=== PATIENT | male | born 1945 | race Caucasian/White ===

== ENCOUNTER → 2020-09-12 | Outpatient (REF) | payer MEDICARE ==
[2020-09-12 12:54] LABS: BASO % 0.6 % (0.0-1.0); EOS # 0.2 10^3/uL (0.0-0.5); EOS % 2.3 % (0.0-3.0); HEMATOCRIT 47.5 % (42.0-52.0); HEMOGLOBIN 15.3 g/dl (13.5-17.5); LYMPH # 1.9 10^3/uL (1.5-5.0); LYMPH % 28.1 % (24.0-44.0); MEAN CORPUSCULAR HGB CONC 32.2 g/dl (32.0-36.5); MEAN CORPUSCULAR VOLUME 93.1 fl (80.0-96.0); MONO # 0.7 10^3/uL (0.0-0.8); NEUTROPHILS # 3.9 10^3/uL (1.5-8.5); NEUTROPHILS % 58.7 % (36.0-66.0); PLATELET COUNT, AUTOMATED 235 10^3/uL (150-450); WHITE BLOOD COUNT 6.6 10^3/uL (4.0-10.0)
[2020-09-12 13:34] LABS: ALBUMIN 3.5 GM/DL (3.2-5.2); ALT/SGPT 25 U/L (12-78); BILIRUBIN,TOTAL 0.4 MG/DL (0.2-1.0); BLOOD UREA NITROGEN 18 MG/DL (7-18); CALCIUM LEVEL 8.7 MG/DL (8.8-10.2); CARBON DIOXIDE LEVEL 29 MEQ/L (21-32); CHLORIDE LEVEL 107 MEQ/L (98-107); CHOLESTEROL LEVEL 246 MG/DL (<200); GLOMERULAR FILTRATION RATE > 60.0 (>42); GLUCOSE, FASTING 87 MG/DL (70-100); HDL CHOLESTEROL 41 MG/DL (>40); LDL CHOLESTEROL 184 MG/DL (<100); NON-HDL-C 205 MG/DL; POTASSIUM SERUM 4.3 MEQ/L (3.5-5.1); SODIUM LEVEL 142 MEQ/L (136-145); TOTAL PROTEIN 6.8 GM/DL (6.4-8.2); TRIGLYCERIDES LEVEL 105 MG/DL (<150)
[2020-09-12 13:35] LABS: TOTAL 25(OH) VITAMIN D 20.3 NG/ML (30.0-100.0)
[2020-09-14 00:07] LABS: PSA % FREE 17.7 % (.); PSA FREE 1.77 ng/mL
== END ==
LOC: M LAB REF 11:31
PROVIDERS: ATTEND Pediatrics
DX: N40.1 Benign prostatic hyperplasia with lower urinary tract symptoms (principal); I63.9 Cerebral infarction, unspecified; I10 Essential (primary) hypertension; E55.9 Vitamin D deficiency, unspecified

== ENCOUNTER → 2020-11-10 | Outpatient (CLI) | payer MEDICARE ==
--- NOTE | 2020-11-10 15:52 | REP ---
INDICATION: DIZZINESS/GIDDINESS. History of stroke. COMPARISON: No available prior imaging.. TECHNIQUE: 3-D [id number] MR angiography of the brain is acquired in the usual fashion and maximal intensity projection images were generated in rotational format about the vertical and horizontal axes. In addition, source axial T1-weighted images are viewed in cine mode. FINDINGS: Image quality is inhibited some degree by instrument limitations. The left distal vertebral artery is a little smaller than the right but vertebral arteries are patent distally. Basilar artery is widely patent. Posterior cerebral and superior cerebellar vessels are intact and unremarkable. The distal internal carotid arteries are unremarkable. The anterior cerebral arteries are normal and symmetric. There is generally poor filling of the left middle cerebral artery compared to the right beyond the M1 segment. This is of uncertain significance. Right middle cerebral artery branches are unremarkable. No evidence of le aneurysm seen. No AVM seen. IMPRESSION: Image quality is somewhat inhibited. Poor visualization of flow signal in the left middle cerebral artery beyond the M1 segment. Otherwise negative.. <Electronically signed by Bebo Christianson > 11/10/20 [id number]
== END ==
LOC: M PLARAD 13:34
PROVIDERS: ATTEND Pediatrics
DX: I63.9 Cerebral infarction, unspecified (principal)

== ENCOUNTER → 2020-12-05 | Outpatient (CLI) | payer MEDICARE ==
--- NOTE | 2020-12-05 14:51 | REP ---
INDICATION: Assess stenosis TECHNIQUE: Carotid ultrasonography was performed bilaterally FINDINGS: Right: CCA systolic: 106.0 centimeters/second CCA diastolic: 13.7 centimeters/second ICA systolic: 70.2 centimeters/second ICA diastolic: 18.9 centimeters/second ICA CCA ratio: 0.17 Left: CCA systolic: 162 centimeters/second CCA diastolic: 23.2 centimeters/second ICA systolic: 57.6 centimeters/second ICA diastolic: 16.5 centimeters/second ICA CCA ratio: 0.10 Vertebral artery: Right: Antegrade flow left: Antegrade flow Patchy echogenic material is seen along the carotid arterial [place] some of which casts and acoustic shadow consistent with calcific deposition. IMPRESSION: According to the SRU criteria there is less than 50% stenosis of the internal carotid artery bilaterally. This is secondary to both calcified and noncalcified atheromatous plaque formation. <Electronically signed by Roberto Pastrana > 12/05/20 2004
== END ==
LOC: EDUNIT# 09-19 14:30 → M RAD 13:59
PROVIDERS: ATTEND Pediatrics
DX: I63.9 Cerebral infarction, unspecified (principal)

== ENCOUNTER → 2022-01-22 | Outpatient (CLI) | payer MEDICARE ==
[~2022-01-22] MED LIST: ASPI325T57 PO; ATOR40TA75 PO; OMEP-173 PO
== END ==
LOC: M WHC 13:19
PROVIDERS: ATTEND Pediatrics
DX: N63.11 Unspecified lump in the right breast, upper outer quadrant (principal)
CPT/HCPCS: 76642; 77066; G0279

== ENCOUNTER → 2022-01-24 | Outpatient (CLI) | payer MEDICARE ==
[2022-01-24 16:08] VITALS: BP 142/80
== END ==
LOC: M WHCPRO 14:13
PROVIDERS: ATTEND Surgery
DX: C50.421 Malignant neoplasm of upper-outer quadrant of right male breast (principal)

== ENCOUNTER → 2022-01-31 | Outpatient (CLI) | payer MEDICARE ==
[~2022-01-31] MED LIST changes: +LOSA100T5 PO
[2022-01-31 16:15] LABS: BLOOD UREA NITROGEN 13 MG/DL (7-18); CALCIUM LEVEL 9.3 MG/DL (8.8-10.2); CARBON DIOXIDE LEVEL 31 MEQ/L (21-32); CHLORIDE LEVEL 105 MEQ/L (98-107); CREATININE FOR GFR 0.99 MG/DL (0.70-1.30); GLOMERULAR FILTRATION RATE > 60.0 (>42); GLUCOSE, FASTING 90 MG/DL (70-100); POTASSIUM SERUM 3.8 MEQ/L (3.5-5.1); SODIUM LEVEL 139 MEQ/L (136-145)
== END ==
LOC: M PLALAB 13:16
PROVIDERS: ATTEND Surgery
DX: C50.921 Malignant neoplasm of unspecified site of right male breast (principal)

== ENCOUNTER → 2022-02-01 | Outpatient (CLI) | payer MEDICARE ==
[~2022-02-01] MED LIST changes: -LOSA100T5 PO; +PROHANCE 279.3MG/ML 15ML VIAL As Ordered ONE
== END ==
LOC: M RAD 09:29
PROVIDERS: ATTEND Surgery
DX: C50.921 Malignant neoplasm of unspecified site of right male breast (principal)
CPT/HCPCS: A9576; C8908

== ENCOUNTER → 2022-02-07 | Outpatient (CLI) | payer MEDICARE ==
[~2022-02-07] MED LIST changes: -PROHANCE 279.3MG/ML 15ML VIAL As Ordered ONE
== END ==
LOC: M RAD 13:48
PROVIDERS: ATTEND Surgery
DX: C50.421 Malignant neoplasm of upper-outer quadrant of right male breast (principal); R59.9 Enlarged lymph nodes, unspecified; Z17.0 Estrogen receptor positive status [ER+]

== ENCOUNTER → 2022-02-15 | Outpatient (CLI) | payer MEDICARE ==
[~2022-02-15] MED LIST changes: +LIDOCAINE 1% MDV 20ML VIAL As Ordered ONE; +LOSA100T5 PO
[2022-02-15 14:14] VITALS: BP 132/66
== END ==
LOC: M IRPRO 13:30
PROVIDERS: ATTEND Surgery
DX: R59.9 Enlarged lymph nodes, unspecified (principal)

== ENCOUNTER → 2022-02-19 | Outpatient (CLI) | payer MEDICARE ==
[~2022-02-19] MED LIST changes: +ACET-839 PO; -LIDOCAINE 1% MDV 20ML VIAL As Ordered ONE; +ULTR50TA8 PO
== END ==
LOC: M PLARAD 08:09
PROVIDERS: ATTEND Surgery
DX: C50.421 Malignant neoplasm of upper-outer quadrant of right male breast (principal); R91.8 Other nonspecific abnormal finding of lung field; R59.9 Enlarged lymph nodes, unspecified; Z17.0 Estrogen receptor positive status [ER+]
CPT/HCPCS: 78815; A9552

== ENCOUNTER → 2022-03-02 | Outpatient (CLI) | payer MEDICARE ==
[~2022-03-02] MED LIST changes: -ACET-839 PO; -ULTR50TA8 PO
== END ==
LOC: M RAD 11:55
PROVIDERS: ATTEND Internal Medicine Pulmonary Disease
DX: C50.421 Malignant neoplasm of upper-outer quadrant of right male breast (principal); I72.8 Aneurysm of other specified arteries

== ENCOUNTER → 2022-03-08 | Outpatient (CLI) | payer MEDICARE | LOC: M LABSMTC 10:46 | PROVIDERS: ATTEND Anesthesiology | DX: Z01.812 Encounter for preprocedural laboratory examination (principal); Z20.822 Contact with and (suspected) exposure to COVID-19 ==

== ENCOUNTER 2022-03-13 06:30 | Observation (INO) | payer MEDICARE ==
[~2022-03-13] VITALS: Ht 176.5 cm; Wt 73.9 kg
[2022-03-13] VITALS (7 sets, daily range): BP systolic 110–158; BP diastolic 64–86
[~2022-03-13 06:30] MED LIST changes: +HEPARIN SOD (PORCINE) 5000UNITS/ML 1ML VIAL/SYRINGE SQ ONE; +ceFAZolin SOD 2 GM in IV 1 EA IV ONE
[2022-03-13] MEDS ORDERED: LR 1,000 ML IV SCH ×3 (07:30→15:30)
[2022-03-13] MEDS ORDERED: BUPIVACAINE HCL 0.25% 30ML VIAL As Ordered ONE (09:29)
[2022-03-13] MEDS ORDERED: BUPIVACAINE LIPOSOME/PF 1.3% 20ML VIAL (13.3MG/ML)(EXPAREL) As Ordered ONE (09:30)
[2022-03-13] MEDS ORDERED: dexameTHASONE 4 MG/ML 1ML VIAL (J1100 PER 1MG) As Ordered ONE (10:38)
[2022-03-13] MEDS ORDERED: MIDAZOLAM INJ 2MG/2ML VIAL (J2250 PER 1MG) As Ordered ONE (10:38)
[2022-03-13] MEDS ORDERED: fentaNYL 250 MCG/5 ML INJECTION As Ordered ONE (10:38)
[2022-03-13] MEDS ORDERED: PHENYLephrine 500MCG 5ML (100MCG/ML) SYRINGE As Ordered ONE (10:38)
[2022-03-13] MEDS ORDERED: ONDANSETRON 4MG 2ML VIAL As Ordered ONE (10:38)
[2022-03-13] MEDS ORDERED: propofoL 200 MG/20 ML VIAL As Ordered ONE ×2 (10:38→11:14)
[2022-03-13] MEDS ORDERED: LIDOCAINE 2% 100MG/5ML SDV (FOR ANES.) As Ordered ONE (10:38)
[2022-03-13] MEDS ORDERED: ROCURONIUM BROMIDE 50 MG/5 ML VIAL As Ordered ONE (10:38)
[2022-03-13] MEDS ORDERED: METOCLOPRAMIDE INJ 10MG/2ML VIAL (J2765 PER 1) As Ordered ONE (10:38)
[2022-03-13] MEDS ORDERED: ACETAMINOPHEN 1000MG 100ML IV BAG As Ordered ONE (10:38)
[2022-03-13] MEDS ORDERED: ePHEDrine SULFATE 25 MG/5 ML(5MG/ML) SYRINGE As Ordered ONE ×2 (10:38→12:57)
[2022-03-13] MEDS ORDERED: SUGAMMADEX SODIUM 500 MG/5 ML VIAL (BRIDION) As Ordered ONE (10:38)
[2022-03-13] MEDS ORDERED: DESFLURANE 240 ML INHALANT As Ordered ONE (11:08)
[2022-03-13] MEDS ORDERED: HYDROmorphone HCL 2MG/ML 1ML VIAL As Ordered ONE (11:15)
[2022-03-13] MEDS ORDERED: fentaNYL 100 MCG/2 ML INJECTION As Ordered ONE (13:56)
[2022-03-13] MEDS ORDERED: fentaNYL 100 MCG/2 ML INJECTION IV PRN (14:30)
[2022-03-13] MEDS ORDERED: oxyCODONE 5MG TAB PO PRN (14:30)
[2022-03-13] MEDS ORDERED: ONDANSETRON 4MG 2ML VIAL IV PRN ×2 (14:30→15:30)
[2022-03-13] MEDS ORDERED: ceFAZolin 2 GM/D5W 50 ML IV BAG (J0690 PER 500MG) As Ordered ONE (14:47)
[2022-03-13] MEDS ORDERED: MORPHINE 2 MG/ML 1ML VIAL IV PRN (15:30)
[2022-03-13] MEDS ORDERED: traMADol 50 MG TAB PO PRN (15:30)
[2022-03-13] MEDS ORDERED: ACETAMINOPHEN TAB 650MG DOSE (2X325MG) PO PRN (15:30)
[2022-03-13] MEDS: ceFAZolin SOD 2 GM in IV 1 EA IV SCH (18:12)
[2022-03-13 18:14] LABS: HEMATOCRIT 43.1 % (42.0-52.0); HEMOGLOBIN 14.1 g/dl (13.5-17.5); MEAN CORPUSCULAR HEMOGLOBIN 30.6 pg (27.0-33.0); MEAN CORPUSCULAR HGB CONC 32.7 g/dl (32.0-36.5); MEAN CORPUSCULAR VOLUME 93.5 fl (80.0-96.0); PLATELET COUNT, AUTOMATED 241 10^3/uL (150-450); RED BLOOD COUNT 4.61 10^6/uL (4.30-6.10); WHITE BLOOD COUNT 15.6 10^3/uL (4.0-10.0)
[2022-03-13 18:26] LABS: INR 0.97; PROTHROMBIN TIME 13.3 SECONDS (12.7-14.5)
[2022-03-13 18:27] LABS: PARTIAL THROMBOPLASTIN TIME 30.3 SECONDS (25.9-37.0)
[2022-03-13 19:07] LABS: ALBUMIN 3.5 GM/DL (3.2-5.2); ALT/SGPT 38 U/L (12-78); BILIRUBIN,TOTAL 0.4 MG/DL (0.2-1.0); BLOOD UREA NITROGEN 14 MG/DL (7-18); CALCIUM LEVEL 9.3 MG/DL (8.8-10.2); CARBON DIOXIDE LEVEL 28 MEQ/L (21-32); CHLORIDE LEVEL 104 MEQ/L (98-107); CREATININE FOR GFR 1.17 MG/DL (0.70-1.30); GLOMERULAR FILTRATION RATE > 60.0 (>42); GLUCOSE, FASTING 161 MG/DL (70-100); POTASSIUM SERUM 3.7 MEQ/L (3.5-5.1); SODIUM LEVEL 138 MEQ/L (136-145)
[2022-03-13] MEDS: HEPARIN SOD (PORCINE) 5000UNITS/ML 1ML VIAL/SYRINGE SQ SCH (21:46)
[2022-03-13] MEDS: OMEPRAZOLE 20MG CAP PO SCH (21:46)
[2022-03-14] MEDS ORDERED: CEPACOL LOZENGE PO PRN (00:20)
[2022-03-14 02:00] VITALS: BP 112/60
[2022-03-14 02:09] VITALS: O2SAT 99
[2022-03-14] MEDS: ceFAZolin SOD 2 GM in IV 1 EA IV SCH ×2 (02:19→10:32)
[2022-03-14] MEDS: HEPARIN SOD (PORCINE) 5000UNITS/ML 1ML VIAL/SYRINGE SQ SCH (05:06)
[2022-03-14 06:00] VITALS: BP 112/61
[2022-03-14 08:14] VITALS: BP 124/70
[2022-03-14] MEDS: OMEPRAZOLE 20MG CAP PO SCH (08:14)
[2022-03-14 08:40] LABS: HEMATOCRIT 34.9 % (42.0-52.0); MEAN CORPUSCULAR HEMOGLOBIN 30.9 pg (27.0-33.0); MEAN CORPUSCULAR HGB CONC 32.7 g/dl (32.0-36.5); MEAN CORPUSCULAR VOLUME 94.6 fl (80.0-96.0); PLATELET COUNT, AUTOMATED 197 10^3/uL (150-450); RED BLOOD COUNT 3.69 10^6/uL (4.30-6.10); WHITE BLOOD COUNT 9.3 10^3/uL (4.0-10.0)
[2022-03-14 08:43] LABS: HEMOGLOBIN 11.4 g/dl (13.5-17.5)
[2022-03-14] MEDS ORDERED: LOSARTAN 50MG TABLET PO SCH (09:00)
[2022-03-14] MEDS ORDERED: ATORVASTATIN 20 MG TAB PO SCH (09:00)
[2022-03-14 09:30] VITALS: O2SAT 97
[2022-03-14 09:31] LABS: ALBUMIN 2.8 GM/DL (3.2-5.2); ALT/SGPT 23 U/L (12-78); BILIRUBIN,TOTAL 0.4 MG/DL (0.2-1.0); BLOOD UREA NITROGEN 11 MG/DL (7-18); CALCIUM LEVEL 8.6 MG/DL (8.8-10.2); CARBON DIOXIDE LEVEL 29 MEQ/L (21-32); CHLORIDE LEVEL 107 MEQ/L (98-107); CREATININE FOR GFR 0.92 MG/DL (0.70-1.30); GLOMERULAR FILTRATION RATE > 60.0 (>42); GLUCOSE, FASTING 110 MG/DL (70-100); SODIUM LEVEL 142 MEQ/L (136-145); TOTAL PROTEIN 5.3 GM/DL (6.4-8.2)
[2022-03-14 10:00] VITALS: BP 117/52
[2022-03-14] MEDS ORDERED: ACET-839 PO (12:07)
[2022-03-14] MEDS ORDERED: ULTR50TA8 PO (12:07)
[2022-04-03] MEDS ORDERED: ONDA-84 PO (16:28)
[2022-04-03] MEDS ORDERED: PROC10TA5 PO (16:28)
[2022-04-03] MEDS ORDERED: DEXA4TA PO (16:37)
== END 2022-03-14 14:48 | disposition home or self-care (01) ==
LOC: M SDC 06:30 → M MSPAV 06:31
PROVIDERS: ADMIT Surgery; ATTEND Surgery
DX: D05.11 Intraductal carcinoma in situ of right breast (principal); E78.5 Hyperlipidemia, unspecified; K31.9 Disease of stomach and duodenum, unspecified; I34.0 Nonrheumatic mitral (valve) insufficiency; D12.6 Benign neoplasm of colon, unspecified; I10 Essential (primary) hypertension; R91.8 Other nonspecific abnormal finding of lung field; Z86.73 Personal history of transient ischemic attack (TIA), and cerebral infarction without residual deficits; Z90.79 Acquired absence of other genital organ(s); Z79.899 Other long term (current) drug therapy; Z79.82 Long term (current) use of aspirin
CPT/HCPCS: 19303; 36415; 38525; 64450; 78195; 80053; 85027; 85610; 85730; 86850; 86900; 86901; 88307; 88342; 96372; A9520; C9290; G0378; J0131; J0690; J1100; J1170; J1644; J2250; J2370; J2405; J2765; J3010

== ENCOUNTER → 2022-04-08 | Outpatient (CLI) | payer MEDICARE ==
[~2022-04-08] MED LIST changes: +ACET-839 PO; +DEXA4TA PO; -HEPARIN SOD (PORCINE) 5000UNITS/ML 1ML VIAL/SYRINGE SQ ONE; +ONDA-84 PO; +PROC10TA5 PO; +ULTR50TA8 PO; -ceFAZolin SOD 2 GM in IV 1 EA IV ONE
== END ==
LOC: M LABSMTC 10:40
PROVIDERS: ATTEND Anesthesiology
DX: Z01.812 Encounter for preprocedural laboratory examination (principal); Z11.52 Encounter for screening for COVID-19

== ENCOUNTER → 2022-04-11 | Outpatient (CLI) | payer MEDICARE ==
[~2022-04-11] MED LIST changes: +LIDOCAINE 1% MDV 20ML VIAL As Ordered ONE; +MIDAZOLAM INJ 2MG/2ML VIAL (J2250 PER 1MG) As Ordered ONE; +NS 1,000 ML IV SCH; +ceFAZolin 2 GM/D5W 50 ML IV BAG (J0690 PER 500MG) As Ordered ONE; +ceFAZolin SOD 2 GM in IV 1 EA IV ONE; +diphenhydrAMINE 50MG/ML VIAL (J1200) As Ordered ONE; +fentaNYL 100 MCG/2 ML INJECTION As Ordered ONE
[2022-04-11 14:50] VITALS: BP 160/72
== END ==
LOC: M IRPRO 10:45
PROVIDERS: ATTEND Specialist
DX: C50.929 Malignant neoplasm of unspecified site of unspecified male breast (principal)
CPT/HCPCS: 36561; 99152; 99153; C1769; C1788; C1894; J0690; J1200; J1642; J1644; J2250; J3010

== ENCOUNTER 2022-04-26 15:18 | Inpatient (IN) | payer MEDICARE ==
[~2022-04-26] VITALS: Ht 175.3 cm; Wt 75.5 kg
[~2022-04-26 15:18] MED LIST changes: -LIDOCAINE 1% MDV 20ML VIAL As Ordered ONE; -MIDAZOLAM INJ 2MG/2ML VIAL (J2250 PER 1MG) As Ordered ONE; -NS 1,000 ML IV SCH; -ceFAZolin 2 GM/D5W 50 ML IV BAG (J0690 PER 500MG) As Ordered ONE; -ceFAZolin SOD 2 GM in IV 1 EA IV ONE; -diphenhydrAMINE 50MG/ML VIAL (J1200) As Ordered ONE; -fentaNYL 100 MCG/2 ML INJECTION As Ordered ONE
[2022-04-26] MEDS ORDERED: NS 500 ML IV ONE (15:50)
[2022-04-26 16:12] LABS: HEMATOCRIT 31.8 % (42.0-52.0); HEMOGLOBIN 10.9 g/dl (13.5-17.5); MEAN CORPUSCULAR HGB CONC 34.3 g/dl (32.0-36.5); MEAN CORPUSCULAR VOLUME 90.3 fl (80.0-96.0); PLATELET COUNT, AUTOMATED 326 10^3/uL (150-450); RED BLOOD COUNT 3.52 10^6/uL (4.30-6.10); WHITE BLOOD COUNT 1.7 10^3/uL (4.0-10.0)
[2022-04-26 16:30] LABS: ATYPICAL LYMPH 7 % (0-5); BASOPHILS 1 % (0-1); EOSINOPHILS 1 % (0-3); LYMPHOCYTES 40 % (16-44); MONOCYTES 49 % (0-5)
[2022-04-26 16:33] LABS: PLATELET ESTIMATE NORMAL (NORMAL)
[2022-04-26 17:04] LABS: ALBUMIN 2.5 GM/DL (3.2-5.2); ALT/SGPT 26 U/L (12-78); BILIRUBIN,DIRECT 0.2 MG/DL (0.0-0.2); BILIRUBIN,TOTAL 0.6 MG/DL (0.2-1.0); BLOOD UREA NITROGEN 21 MG/DL (7-18); CALCIUM LEVEL 8.3 MG/DL (8.8-10.2); CARBON DIOXIDE LEVEL 30 MEQ/L (21-32); CHLORIDE LEVEL 96 MEQ/L (98-107); CREATININE FOR GFR 0.88 MG/DL (0.70-1.30); GLOMERULAR FILTRATION RATE > 60.0 (>42); GLUCOSE, FASTING 104 MG/DL (70-100); LIPASE 138 U/L (73-393); MAGNESIUM LEVEL 2.2 MG/DL (1.8-2.4); POTASSIUM SERUM 2.8 MEQ/L (3.5-5.1); SODIUM LEVEL 133 MEQ/L (136-145); TOTAL PROTEIN 5.5 GM/DL (6.4-8.2)
[2022-04-26] MEDS ORDERED: KCL 10MEQ/100ML SWI (KRUN) 10 MEQ in IV 1 EA IV ONE (17:05)
[2022-04-26 18:06] LABS: MONO REFLEX EBV COMP NEGATIVE (NEGATIVE)
[2022-04-26] MEDS ORDERED: cefTRIAXone SOD 1 GM in D5W MINI-BAG PLUS 50 ML IV ONE (19:00)
[2022-04-26] MEDS ORDERED: POTASSIUM CHLORIDE 10MEQ SR TABLET PO ONE (19:30)
[2022-04-26] MEDS ORDERED: ACETAMINOPHEN 325 MG TAB PO ONE (19:55)
[2022-04-26] MEDS ORDERED: VITA200031 PO (20:53)
[2022-04-26] MEDS ORDERED: TRAM50TA2 PO (20:53)
[2022-04-26] MEDS ORDERED: ASPI325T56 PO (20:53)
[2022-04-26] MEDS ORDERED: ATOR40TA75 PO (20:53)
[2022-04-26] MEDS ORDERED: HOME MED LIST COMPLETE! XX SCH (20:55)
[2022-04-26] MEDS ORDERED: NS 1,000 ML IV SCH (22:00)
[2022-04-26 22:44] VITALS: BP 103/56
[2022-04-26] MEDS ORDERED: ONDANSETRON 4MG TAB PO PRN (22:55)
[2022-04-26] MEDS ORDERED: traMADol 50 MG TAB PO PRN (22:55)
[2022-04-26] MEDS ORDERED: PROCHLORPERAZINE 5MG TAB PO PRN (22:55)
[2022-04-26] MEDS ORDERED: POTASSIUM CHLORIDE 10% LIQ 20 MEQ/15 ML UDC PO ONE (23:00)
[2022-04-27] MEDS: NS 1,000 ML IV SCH ×2 (00:27→12:44)
[2022-04-27 01:00] VITALS: O2SAT 92
[2022-04-27 05:50] VITALS: BP 103/56
[2022-04-27 07:14] LABS: HEMATOCRIT 30.2 % (42.0-52.0); HEMOGLOBIN 10.1 g/dl (13.5-17.5); MEAN CORPUSCULAR HEMOGLOBIN 30.5 pg (27.0-33.0); MEAN CORPUSCULAR HGB CONC 33.4 g/dl (32.0-36.5); MEAN CORPUSCULAR VOLUME 91.2 fl (80.0-96.0); PLATELET COUNT, AUTOMATED 284 10^3/uL (150-450); RED BLOOD COUNT 3.31 10^6/uL (4.30-6.10); WHITE BLOOD COUNT 2.1 10^3/uL (4.0-10.0)
[2022-04-27 08:04] LABS: BLOOD UREA NITROGEN 15 MG/DL (7-18); CALCIUM LEVEL 7.6 MG/DL (8.8-10.2); CARBON DIOXIDE LEVEL 28 MEQ/L (21-32); CHLORIDE LEVEL 101 MEQ/L (98-107); CREATININE FOR GFR 0.83 MG/DL (0.70-1.30); GLOMERULAR FILTRATION RATE > 60.0 (>42); GLUCOSE, FASTING 144 MG/DL (70-100); POTASSIUM SERUM 2.9 MEQ/L (3.5-5.1); SODIUM LEVEL 136 MEQ/L (136-145)
[2022-04-27 08:26] LABS: LYMPHOCYTES 24 % (16-44); METAMYELOCYTES 2 % (0-0); MONOCYTES 42 % (0-5); NEUTROPHILS 14 % (28-66)
[2022-04-27 08:28] LABS: PLATELET ESTIMATE NORMAL (NORMAL)
[2022-04-27 08:29] LABS: INR 1.18; PROTHROMBIN TIME 15.3 SECONDS (12.5-14.5)
[2022-04-27 08:32] LABS: D-DIMER QUANT 387.41 ng/ml (<500)
[2022-04-27 08:49] LABS: C REACTIVE PROTEIN QUANTITATIV 6.54 MG/DL (0.00-0.30)
[2022-04-27] MEDS: ATORVASTATIN 20 MG TAB PO SCH (08:52)
[2022-04-27] MEDS: ASPIRIN 325 MG TAB PO SCH (08:52)
[2022-04-27] MEDS: OMEPRAZOLE 20MG CAP PO SCH (08:52)
[2022-04-27] MEDS ORDERED: HEPARIN SOD (PORCINE) 5000UNITS/ML 1ML VIAL/SYRINGE SC SCH (09:00)
[2022-04-27] MEDS ORDERED: FLUBLOK(EGG FREE)(QUAD)INFLUENZA VACC 0.5ML SYRINGE 18YRS & OLDER IM.IMMUN ONE (09:00)
[2022-04-27] MEDS ORDERED: PREVNAR-20 VACCINE 0.5ML SYRINGE IM.IMMUN ONE (09:00)
[2022-04-27 14:00] VITALS: BP 96/66
[2022-04-27] MEDS ORDERED: CEFEPIME HCL 1 GM in D5W MINI-BAG PLUS 50 ML IV SCH (17:30)
[2022-04-27] MEDS ORDERED: VANCOMYCIN HCL 750 MG, VIAL MATE ADAPTER 1 EACH in NS 250 ML IV SCH (17:40)
[2022-04-27] MEDS ORDERED: REMDESIVIR 200 MG in NS 250 ML IV ONE (18:00)
[2022-04-27] MEDS ORDERED: POTASSIUM CHLORIDE 10MEQ SR TABLET PO ONE ×2 (18:00→20:00)
[2022-04-27] MEDS ORDERED: cefTRIAXone SOD 1 GM in D5W MINI-BAG PLUS 50 ML IV SCH (20:00)
[2022-04-27 20:40] VITALS: BP 125/57
[2022-04-27] MEDS ORDERED: SODIUM CHLORIDE 0.9% INJ 10 ML SYR IV ONE (20:40)
[2022-04-27] MEDS: FILGRASTIM 300 MCG/0.5 ML SYRINGE **SC ADMINISTRATION ONLY SC SCH (21:59)
[2022-04-27] MEDS: PIPERACILLIN/TAZOBACTAM SOD 3.375 GM in D5W MINI-BAG PLUS 50 ML IV SCH (22:00)
[2022-04-27] MEDS ORDERED: VANCOMYCIN HCL 750 MG, VIAL MATE ADAPTER 1 EACH in D5W 250 ML IV ONE (23:00)
[2022-04-28] MEDS ORDERED: VANCOMYCIN HCL 750 MG, VIAL MATE ADAPTER 1 EACH in D5W 250 ML IV ONE ×3
[2022-04-28] MEDS: SODIUM CHLORIDE 0.9% INJ 10 ML SYR IV PRN ×4 (00:56→20:32)
[2022-04-28 02:02] LABS: BASO % 0.4 % (0.0-1.0); EOS % 0.4 % (0.0-3.0); HEMATOCRIT 31.5 % (42.0-52.0); HEMOGLOBIN 10.3 g/dl (13.5-17.5); LYMPH # 1.2 10^3/uL (1.5-5.0); LYMPH % 23.9 % (24.0-44.0); MEAN CORPUSCULAR HEMOGLOBIN 30.3 pg (27.0-33.0); MEAN CORPUSCULAR HGB CONC 32.7 g/dl (32.0-36.5); MEAN CORPUSCULAR VOLUME 92.6 fl (80.0-96.0); MONO # 1.3 10^3/uL (0.0-0.8); MONO % 25.2 % (2.0-8.0); NEUTROPHILS # 2.3 10^3/uL (1.5-8.5); NEUTROPHILS % 44.9 % (36.0-66.0); PLATELET COUNT, AUTOMATED 312 10^3/uL (150-450)
[2022-04-28 02:39] LABS: ALT/SGPT 23 U/L (12-78); BILIRUBIN,TOTAL 0.2 MG/DL (0.2-1.0); BLOOD UREA NITROGEN 14 MG/DL (7-18); CARBON DIOXIDE LEVEL 26 MEQ/L (21-32); CHLORIDE LEVEL 106 MEQ/L (98-107); GLOMERULAR FILTRATION RATE > 60.0 (>42); GLUCOSE, FASTING 115 MG/DL (70-100); POTASSIUM SERUM 3.1 MEQ/L (3.5-5.1); SODIUM LEVEL 139 MEQ/L (136-145); TOTAL PROTEIN 5.3 GM/DL (6.4-8.2)
[2022-04-28 04:00] VITALS: BP 110/66
[2022-04-28] MEDS: PIPERACILLIN/TAZOBACTAM SOD 3.375 GM in D5W MINI-BAG PLUS 50 ML IV SCH ×4 (04:00→20:32)
[2022-04-28] MEDS: POTASSIUM CHLORIDE 10MEQ SR TABLET PO SCH ×2 (04:01→06:10)
[2022-04-28] MEDS: ACETAMINOPHEN TAB 650MG DOSE (2X325MG) PO PRN ×2 (04:02→20:34)
[2022-04-28 06:35] VITALS: O2SAT 92
[2022-04-28] MEDS ORDERED: POTASSIUM CHLORIDE 10MEQ SR TABLET PO ONE ×2 (07:55→21:00)
[2022-04-28] MEDS ORDERED: VANCOMYCIN HCL 1,000 MG, VIAL MATE ADAPTER 1 EACH in D5W 250 ML IV SCH (08:00)
[2022-04-28] MEDS: ASPIRIN 325 MG TAB PO SCH (08:50)
[2022-04-28] MEDS: ATORVASTATIN 20 MG TAB PO SCH (08:50)
[2022-04-28] MEDS: OMEPRAZOLE 20MG CAP PO SCH (08:50)
[2022-04-28] MEDS: SODIUM CHLORIDE 0.9% INJ 10 ML SYR IV SCH ×2 (08:51→18:16)
[2022-04-28] MEDS ORDERED: ENOXAPARIN 40MG/0.4ML SYRINGE (J1650 PER 10MG) SC SCH (09:00)
[2022-04-28 14:00] VITALS: BP 113/53
[2022-04-28] MEDS ORDERED: MIRALAX *UNIT DOSE* 17GM PACKET PO PRN (15:20)
[2022-04-28 16:19] LABS: BLOOD UREA NITROGEN 12 MG/DL (7-18); CARBON DIOXIDE LEVEL 27 MEQ/L (21-32); CHLORIDE LEVEL 109 MEQ/L (98-107); GLOMERULAR FILTRATION RATE > 60.0 (>42); GLUCOSE, FASTING 129 MG/DL (70-100); POTASSIUM SERUM 3.4 MEQ/L (3.5-5.1); SODIUM LEVEL 142 MEQ/L (136-145)
[2022-04-28 17:07] LABS: EBV AB TO NUCLEAR ANTIGEN <18.0 U/mL (0.0-17.9); EBV VIRAL CAPSID AG IgM <36.0 U/mL (0.0-35.9)
[2022-04-28] MEDS: REMDESIVIR 100 MG in NS 250 ML IV SCH (17:38)
[2022-04-28] MEDS: FILGRASTIM 300 MCG/0.5 ML SYRINGE **SC ADMINISTRATION ONLY SC SCH (18:08)
[2022-04-28 18:39] LABS: FERRITIN 456 NG/ML (26-388); IRON (FE) 60 UG/DL (65-175); PERCENT SATURATION 36.1 % (19.7-50.0); TOTAL IRON BINDING CAPACITY 166 UG/DL (250-450)
[2022-04-28 20:00] VITALS: BP 135/70
[2022-04-28] MEDS: SENNA 8.6 MG TAB (SENOKOT) PO SCH (20:31)
[2022-04-28] MEDS: DOCUSATE SODIUM 100MG CAPSULE PO SCH (20:31)
[2022-04-29] MEDS: SODIUM CHLORIDE 0.9% INJ 10 ML SYR IV PRN ×4 (00:15→18:39)
[2022-04-29] MEDS: PREPARATION H SUPP (HEMORRHOID) PR SCH ×3 (00:16→22:16)
[2022-04-29 01:48] VITALS: O2SAT 92
[2022-04-29] MEDS: PIPERACILLIN/TAZOBACTAM SOD 3.375 GM in D5W MINI-BAG PLUS 50 ML IV SCH (04:06)
[2022-04-29 04:20] VITALS: BP 133/68
[2022-04-29] MEDS ORDERED: POTASSIUM CHLORIDE 10MEQ SR TABLET PO ONE (08:00)
[2022-04-29] MEDS: DOCUSATE SODIUM 100MG CAPSULE PO SCH ×2 (09:26→22:06)
[2022-04-29] MEDS: LevoFLOXacin 250 MG TABLET PO SCH (09:26)
[2022-04-29] MEDS: OMEPRAZOLE 20MG CAP PO SCH (09:26)
[2022-04-29] MEDS: ASPIRIN 325 MG TAB PO SCH (09:26)
[2022-04-29] MEDS: FERROUS SULFATE 325MG TAB PO SCH ×2 (09:26→22:16)
[2022-04-29] MEDS: ATORVASTATIN 20 MG TAB PO SCH (09:27)
[2022-04-29] MEDS: SODIUM CHLORIDE 0.9% INJ 10 ML SYR IV SCH ×2 (09:28→17:24)
[2022-04-29 09:36] LABS: BASO # 0.1 10^3/uL (0.0-0.2); BASO % 0.2 % (0.0-1.0); EOS % 0.1 % (0.0-3.0); HEMATOCRIT 33.2 % (42.0-52.0); HEMOGLOBIN 11.2 g/dl (13.5-17.5); LYMPH # 2.8 10^3/uL (1.5-5.0); MEAN CORPUSCULAR HEMOGLOBIN 30.9 pg (27.0-33.0); MEAN CORPUSCULAR HGB CONC 33.7 g/dl (32.0-36.5); MEAN CORPUSCULAR VOLUME 91.5 fl (80.0-96.0); MONO % 8.3 % (2.0-8.0); NEUTROPHILS # 28.4 10^3/uL (1.5-8.5); NEUTROPHILS % 72.1 % (36.0-66.0); PLATELET COUNT, AUTOMATED 356 10^3/uL (150-450); RED BLOOD COUNT 3.63 10^6/uL (4.30-6.10)
[2022-04-29 09:37] LABS: MONO # 3.3 10^3/uL (0.0-0.8)
[2022-04-29 09:38] LABS: WHITE BLOOD COUNT 39.3 10^3/uL (4.0-10.0)
[2022-04-29 09:54] LABS: INR 1.16; PROTHROMBIN TIME 15.1 SECONDS (12.5-14.5)
[2022-04-29 09:55] LABS: PARTIAL THROMBOPLASTIN TIME 29.5 SECONDS (24.8-34.2)
[2022-04-29 10:20] LABS: ALBUMIN 2.2 GM/DL (3.2-5.2); ALT/SGPT 25 U/L (12-78); BILIRUBIN,TOTAL 0.3 MG/DL (0.2-1.0); BLOOD UREA NITROGEN 11 MG/DL (7-18); CALCIUM LEVEL 8.3 MG/DL (8.8-10.2); CARBON DIOXIDE LEVEL 24 MEQ/L (21-32); CHLORIDE LEVEL 110 MEQ/L (98-107); CREATININE FOR GFR 0.94 MG/DL (0.70-1.30); GLOMERULAR FILTRATION RATE > 60.0 (>42); GLUCOSE, FASTING 104 MG/DL (70-100); POTASSIUM SERUM 3.6 MEQ/L (3.5-5.1); SODIUM LEVEL 141 MEQ/L (136-145)
[2022-04-29 14:00] VITALS: BP 126/62
[2022-04-29 15:14] LABS: LYMPHOCYTES 4 % (16-44); METAMYELOCYTES 1 % (0-0); MONOCYTES 5 % (0-5); NEUTROPHILS 66 % (28-66)
[2022-04-29 15:15] LABS: PLATELET ESTIMATE NORMAL (NORMAL)
[2022-04-29 15:50] LABS: BLOOD UREA NITROGEN 12 MG/DL (7-18); CALCIUM LEVEL 8.1 MG/DL (8.8-10.2); CARBON DIOXIDE LEVEL 26 MEQ/L (21-32); CHLORIDE LEVEL 111 MEQ/L (98-107); CREATININE FOR GFR 0.84 MG/DL (0.70-1.30); GLOMERULAR FILTRATION RATE > 60.0 (>42); GLUCOSE, FASTING 107 MG/DL (70-100); POTASSIUM SERUM 3.9 MEQ/L (3.5-5.1); SODIUM LEVEL 142 MEQ/L (136-145)
[2022-04-29] MEDS: REMDESIVIR 100 MG in NS 250 ML IV SCH (17:24)
[2022-04-29 22:00] VITALS: BP 150/78
[2022-04-29] MEDS: SENNA 8.6 MG TAB (SENOKOT) PO SCH (22:06)
[2022-04-29 22:49] VITALS: BP 149/81
[2022-04-30] MEDS ORDERED: LOSARTAN 50MG TABLET PO ONE
[2022-04-30 06:00] VITALS: BP 146/77; O2SAT 95
[2022-04-30] MEDS: LevoFLOXacin 250 MG TABLET PO SCH (06:06)
[2022-04-30 06:16] LABS: BASO # 0.1 10^3/uL (0.0-0.2); BASO % 0.2 % (0.0-1.0); HEMOGLOBIN 10.9 g/dl (13.5-17.5); LYMPH # 2.5 10^3/uL (1.5-5.0); LYMPH % 8.2 % (24.0-44.0); MEAN CORPUSCULAR HEMOGLOBIN 30.9 pg (27.0-33.0); MEAN CORPUSCULAR VOLUME 93.5 fl (80.0-96.0); MONO % 8.2 % (2.0-8.0); NEUTROPHILS # 21.7 10^3/uL (1.5-8.5); NEUTROPHILS % 69.8 % (36.0-66.0); PLATELET COUNT, AUTOMATED 322 10^3/uL (150-450); RED BLOOD COUNT 3.53 10^6/uL (4.30-6.10)
[2022-04-30 06:32] LABS: MONO # 2.6 10^3/uL (0.0-0.8)
[2022-04-30 07:03] LABS: ALBUMIN 2.1 GM/DL (3.2-5.2); ALT/SGPT 36 U/L (12-78); BILIRUBIN,TOTAL 0.2 MG/DL (0.2-1.0); BLOOD UREA NITROGEN 11 MG/DL (7-18); CALCIUM LEVEL 8.1 MG/DL (8.8-10.2); CARBON DIOXIDE LEVEL 27 MEQ/L (21-32); CHLORIDE LEVEL 109 MEQ/L (98-107); CREATININE FOR GFR 0.87 MG/DL (0.70-1.30); GLOMERULAR FILTRATION RATE > 60.0 (>42); GLUCOSE, FASTING 111 MG/DL (70-100); POTASSIUM SERUM 3.5 MEQ/L (3.5-5.1); SODIUM LEVEL 141 MEQ/L (136-145); TOTAL PROTEIN 4.6 GM/DL (6.4-8.2)
[2022-04-30] MEDS: DOCUSATE SODIUM 100MG CAPSULE PO SCH ×2 (09:58→20:20)
[2022-04-30] MEDS: ATORVASTATIN 20 MG TAB PO SCH (09:59)
[2022-04-30] MEDS: SODIUM CHLORIDE 0.9% INJ 10 ML SYR IV SCH ×2 (09:59→18:29)
[2022-04-30] MEDS: PREPARATION H SUPP (HEMORRHOID) PR SCH (09:59)
[2022-04-30] MEDS: FERROUS SULFATE 325MG TAB PO SCH ×2 (09:59→20:20)
[2022-04-30] MEDS: OMEPRAZOLE 20MG CAP PO SCH (09:59)
[2022-04-30 14:00] VITALS: BP 142/67
[2022-04-30] MEDS: REMDESIVIR 100 MG in NS 250 ML IV SCH (17:17)
[2022-04-30] MEDS: LOSARTAN 50MG TABLET PO SCH (17:19)
[2022-04-30] MEDS: SODIUM CHLORIDE 0.9% INJ 10 ML SYR IV PRN (18:29)
[2022-04-30] MEDS: SENNA 8.6 MG TAB (SENOKOT) PO SCH (20:20)
[2022-04-30 21:00] VITALS: BP 124/73
[2022-05-01] MEDS: LevoFLOXacin 250 MG TABLET PO SCH (05:40)
[2022-05-01 05:43] VITALS: BP 126/74
[2022-05-01 07:16] LABS: BASO # 0.1 10^3/uL (0.0-0.2); BASO % 0.3 % (0.0-1.0); EOS % 0.1 % (0.0-3.0); HEMATOCRIT 35.5 % (42.0-52.0); HEMOGLOBIN 11.3 g/dl (13.5-17.5); LYMPH # 2.3 10^3/uL (1.5-5.0); LYMPH % 12.7 % (24.0-44.0); MEAN CORPUSCULAR HEMOGLOBIN 30.1 pg (27.0-33.0); MEAN CORPUSCULAR HGB CONC 31.8 g/dl (32.0-36.5); MEAN CORPUSCULAR VOLUME 94.7 fl (80.0-96.0); MONO % 12.3 % (2.0-8.0); NEUTROPHILS # 10.2 10^3/uL (1.5-8.5); NEUTROPHILS % 57.5 % (36.0-66.0); PLATELET COUNT, AUTOMATED 338 10^3/uL (150-450); RED BLOOD COUNT 3.75 10^6/uL (4.30-6.10); WHITE BLOOD COUNT 17.8 10^3/uL (4.0-10.0)
[2022-05-01 07:23] LABS: MONO # 2.2 10^3/uL (0.0-0.8)
[2022-05-01 08:16] LABS: ALBUMIN 2.3 GM/DL (3.2-5.2); ALT/SGPT 67 U/L (12-78); BILIRUBIN,TOTAL 0.3 MG/DL (0.2-1.0); BLOOD UREA NITROGEN 11 MG/DL (7-18); CALCIUM LEVEL 8.4 MG/DL (8.8-10.2); CARBON DIOXIDE LEVEL 27 MEQ/L (21-32); CHLORIDE LEVEL 108 MEQ/L (98-107); CREATININE FOR GFR 0.93 MG/DL (0.70-1.30); GLOMERULAR FILTRATION RATE > 60.0 (>42); GLUCOSE, FASTING 105 MG/DL (70-100); POTASSIUM SERUM 3.7 MEQ/L (3.5-5.1); SODIUM LEVEL 143 MEQ/L (136-145)
[2022-05-01] MEDS ORDERED: ASPIRIN 325 MG TAB PO SCH (09:00)
[2022-05-01] MEDS: SODIUM CHLORIDE 0.9% INJ 10 ML SYR IV SCH (10:00)
[2022-05-01] MEDS: ATORVASTATIN 20 MG TAB PO SCH (10:26)
[2022-05-01] MEDS: DOCUSATE SODIUM 100MG CAPSULE PO SCH (10:27)
[2022-05-01] MEDS: FERROUS SULFATE 325MG TAB PO SCH (10:27)
[2022-05-01] MEDS: OMEPRAZOLE 20MG CAP PO SCH (10:27)
[2022-05-01 10:28] VITALS: BP 126/74
[2022-05-01] MEDS: LOSARTAN 50MG TABLET PO SCH (10:28)
[2022-05-01] MEDS ORDERED: LEVO1TAB38 PO (12:30)
[2022-05-01] MEDS ORDERED: FERR1TAB8 PO (12:30)
[2022-05-01] MEDS: SODIUM CHLORIDE 0.9% INJ 10 ML SYR IV PRN (14:27)
== END 2022-05-01 14:38 | disposition home health service (06) | DRG 871 ==
LOC: M ED 15:18 → M ED INP 20:09 → M MSPAV 22:25
PROVIDERS: ADMIT Internal Medicine; ATTEND General Practice
DX: A41.89 Other specified sepsis (principal); U07.1 COVID-19; N39.0 Urinary tract infection, site not specified; E87.1 Hypo-osmolality and hyponatremia; E87.6 Hypokalemia; C50.929 Malignant neoplasm of unspecified site of unspecified male breast; E78.5 Hyperlipidemia, unspecified; I10 Essential (primary) hypertension; K21.9 Gastro-esophageal reflux disease without esophagitis; Z92.21 Personal history of antineoplastic chemotherapy; D50.9 Iron deficiency anemia, unspecified; N30.90 Cystitis, unspecified without hematuria; R31.9 Hematuria, unspecified; K64.8 Other hemorrhoids; Z79.899 Other long term (current) drug therapy; F64.1 Dual role transvestism; Z79.82 Long term (current) use of aspirin

== ENCOUNTER 2022-06-10 13:05 | Inpatient (IN) | payer MEDICARE ==
[~2022-06-10] VITALS: Ht 175.3 cm; Wt 75.9 kg
[~2022-06-10 13:05] MED LIST changes: +ASPI325T56 PO; +FERR1TAB8 PO; +LACT20EL PO; +LEVO1TAB38 PO; +POTA1TAB14 PO; +TRAM50TA2 PO; +VITA200031 PO
[2022-06-10] MEDS ORDERED: NS 1,000 ML IV ONE (15:10)
[2022-06-10 15:35] LABS: HEMATOCRIT 25.2 % (42.0-52.0); HEMOGLOBIN 8.4 g/dl (13.5-17.5); MEAN CORPUSCULAR HGB CONC 33.3 g/dl (32.0-36.5); PLATELET COUNT, AUTOMATED 372 10^3/uL (150-450); WHITE BLOOD COUNT 1.6 10^3/uL (4.0-10.0)
[2022-06-10 15:59] LABS: CK-MB VALUE MASS < 1.0 NG/ML (<3.6)
[2022-06-10 16:00] LABS: CPK CREATINE PHOSPHOKINASE 36 U/L (46-171); MB/CK RELATIVE INDEX 2.77 (< OR =4)
[2022-06-10 16:01] LABS: BILIRUBIN,DIRECT 0.2 MG/DL (<0.4)
[2022-06-10 16:02] LABS: PREALBUMIN 5.8 MG/DL (10.0-40.0)
[2022-06-10 16:07] LABS: ALBUMIN 2.1 G/DL (3.2-5.2); ALKALINE PHOSPHATASE 78 U/L (46-116); ALT/SGPT 23 U/L (7.0-40); AST/SGOT 23 U/L (<34); BILIRUBIN,TOTAL 0.4 MG/DL (0.3-1.2); BLOOD UREA NITROGEN 13 MG/DL (9-23); CALCIUM LEVEL 7.7 MG/DL (8.3-10.6); CARBON DIOXIDE LEVEL 30 MMOL/L (20-31); CHLORIDE LEVEL 92 MMOL/L (98-107); CREATININE FOR GFR 0.79 MG/DL (0.70-1.30); GLOMERULAR FILTRATION RATE > 60.0 (>42); GLUCOSE, FASTING 99 MG/DL (74-106); POTASSIUM SERUM 2.9 MMOL/L (3.5-5.1); SODIUM LEVEL 133 MMOL/L (136-145); TOTAL PROTEIN 4.9 G/DL (5.7-8.2)
[2022-06-10 16:08] LABS: RSV AMPLIFICATION NEGATIVE (NEGATIVE)
[2022-06-10 16:09] LABS: BASOPHILS 2 % (0-1); EOSINOPHILS 1 % (0-3); LYMPHOCYTES 45 % (16-44); MONOCYTES 42 % (0-5); NEUTROPHILS 10 % (28-66); PLATELET ESTIMATE NORMAL (NORMAL)
[2022-06-10] MEDS ORDERED: KCL 20MEQ IN 100ML SWI (KRUN) 20 MEQ in IV 1 EA IV ONE ×2 (16:10)
[2022-06-10] MEDS ORDERED: HOME MED LIST COMPLETE! XX SCH (17:55)
[2022-06-10] MEDS ORDERED: FERR325T19 PO (17:55)
[2022-06-10] MEDS: KCL 10MEQ/100ML SWI (KRUN) 10 MEQ in IV 1 EA IV SCH ×2 (18:00→19:43)
[2022-06-10] MEDS ORDERED: MAG SULF 1GM/100ML (MAG RUN) 1 GM in IV 1 EA IV ONE (20:00)
[2022-06-10] MEDS ORDERED: LevoFLOXacin IV 750 MG in IV 1 EA IV SCH (20:00)
[2022-06-10] MEDS: FERROUS SULFATE 325MG TAB PO SCH (22:13)
[2022-06-10 22:47] LABS: APPEARANCE, URINE MANUAL CLEAR (CLEAR); COLOR, URINE MANUAL YELLOW (YELLOW)
[2022-06-10 22:48] LABS: SPECIFIC GRAVITY,URINE MANUAL 1.005 (1.002-1.035)
[2022-06-10 22:50] LABS: BILIRUBIN, URINE MANUAL NEGATIVE (NEGATIVE); BLOOD URINE MANUAL NEGATIVE (NEGATIVE); GLUCOSE, URINE (UA) MANUAL NEGATIVE (NEGATIVE); KETONE, URINE MANUAL NEGATIVE (NEGATIVE); LEUKOCYTE ESTERASE, URINE MAN NEGATIVE (NEGATIVE); NITRITE, URINE MANUAL NEGATIVE (NEGATIVE); PROTEIN, URINE MANUAL NEGATIVE (NEGATIVE); UROBILINOGEN, URINE MANUAL NORMAL (NORMAL)
[2022-06-10 23:27] LABS: BLOOD UREA NITROGEN 11 MG/DL (9-23); CALCIUM LEVEL 7.3 MG/DL (8.3-10.6); CARBON DIOXIDE LEVEL 34 MMOL/L (20-31); CHLORIDE LEVEL 96 MMOL/L (98-107); CREATININE FOR GFR 0.85 MG/DL (0.70-1.30); GLOMERULAR FILTRATION RATE > 60.0 (>42); GLUCOSE, FASTING 137 MG/DL (74-106); POTASSIUM SERUM 2.8 MMOL/L (3.5-5.1); SODIUM LEVEL 135 MMOL/L (136-145)
[2022-06-11] MEDS ORDERED: ONDANSETRON 4MG 2ML VIAL IV PRN (00:05)
[2022-06-11] MEDS: KCL 10MEQ/100ML SWI (KRUN) 10 MEQ in IV 1 EA IV SCH ×6 (01:00→07:43)
[2022-06-11 07:15] LABS: HEMATOCRIT 25.4 % (42.0-52.0); HEMOGLOBIN 8.3 g/dl (13.5-17.5); MEAN CORPUSCULAR HEMOGLOBIN 29.7 pg (27.0-33.0); MEAN CORPUSCULAR HGB CONC 32.7 g/dl (32.0-36.5); PLATELET COUNT, AUTOMATED 356 10^3/uL (150-450); RED BLOOD COUNT 2.79 10^6/uL (4.30-6.10); WHITE BLOOD COUNT 1.7 10^3/uL (4.0-10.0)
[2022-06-11 07:43] LABS: MAGNESIUM LEVEL 1.8 MG/DL (1.8-2.4)
[2022-06-11 08:01] LABS: BLOOD UREA NITROGEN 8 MG/DL (9-23); CALCIUM LEVEL 7.5 MG/DL (8.3-10.6); CARBON DIOXIDE LEVEL 33 MMOL/L (20-31); CHLORIDE LEVEL 97 MMOL/L (98-107); CREATININE FOR GFR 0.81 MG/DL (0.70-1.30); GLOMERULAR FILTRATION RATE > 60.0 (>42); GLUCOSE, FASTING 108 MG/DL (74-106); POTASSIUM SERUM 3.4 MMOL/L (3.5-5.1); SODIUM LEVEL 137 MMOL/L (136-145)
[2022-06-11] MEDS: FERROUS SULFATE 325MG TAB PO SCH ×2 (08:30→22:08)
[2022-06-11] MEDS: ENOXAPARIN 40MG/0.4ML SYRINGE (J1650 PER 10MG) SC SCH (08:31)
[2022-06-11] MEDS: OMEPRAZOLE 20MG CAP PO SCH (08:31)
[2022-06-11] MEDS: ATORVASTATIN 20 MG TAB PO SCH (08:31)
[2022-06-11 08:40] LABS: ATYPICAL LYMPH 6 % (0-5); BASOPHILS 1 % (0-1); LYMPHOCYTES 54 % (16-44); MONOCYTES 16 % (0-5); MYELOCYTES 1 % (0-0); NEUTROPHILS 20 % (28-66)
[2022-06-11 08:41] LABS: ANISOCYTOSIS 1+; PLATELET ESTIMATE NORMAL (NORMAL)
[2022-06-11] MEDS ORDERED: FILGRASTIM 300MCG 0.5ML SYRINGE **SC ADMINISTRATION ONLY SC SCH (09:00)
[2022-06-11 13:45] VITALS: BP 105/59
[2022-06-11] MEDS: PIPERACILLIN/TAZOBACTAM SOD 3.375 GM in D5W MINI-BAG PLUS 50 ML IV SCH (18:13)
[2022-06-11] MEDS ORDERED: LevoFLOXacin 750 MG TABLET PO SCH (20:00)
[2022-06-11 21:57] VITALS: BP 91/50
[2022-06-11 22:05] VITALS: BP 91/50
[2022-06-11 22:16] VITALS: BP 107/55
[2022-06-11 22:41] VITALS: BP 108/56
[2022-06-11 23:20] VITALS: BP 110/56
[2022-06-12] VITALS: BP 111/57
[2022-06-12 00:10] VITALS: BP 111/57
[2022-06-12] MEDS ORDERED: SODIUM CHLORIDE 0.9% INJ 10 ML SYR IV PRN (00:10)
[2022-06-12] MEDS: PIPERACILLIN/TAZOBACTAM SOD 3.375 GM in D5W MINI-BAG PLUS 50 ML IV SCH ×3 (00:12→13:03)
[2022-06-12 05:15] VITALS: BP 115/59
[2022-06-12 06:17] LABS: HEMATOCRIT 29.8 % (42.0-52.0); HEMOGLOBIN 9.7 g/dl (13.5-17.5); MEAN CORPUSCULAR HEMOGLOBIN 29.8 pg (27.0-33.0); MEAN CORPUSCULAR HGB CONC 32.6 g/dl (32.0-36.5); MEAN CORPUSCULAR VOLUME 91.4 fl (80.0-96.0); PLATELET COUNT, AUTOMATED 453 10^3/uL (150-450); RED BLOOD COUNT 3.26 10^6/uL (4.30-6.10); WHITE BLOOD COUNT 14.2 10^3/uL (4.0-10.0)
[2022-06-12 06:47] LABS: MAGNESIUM LEVEL 1.7 MG/DL (1.8-2.4)
[2022-06-12 06:49] LABS: BLOOD UREA NITROGEN 8 MG/DL (9-23); CALCIUM LEVEL 7.5 MG/DL (8.3-10.6); CARBON DIOXIDE LEVEL 29 MMOL/L (20-31); CHLORIDE LEVEL 99 MMOL/L (98-107); CREATININE FOR GFR 0.98 MG/DL (0.70-1.30); GLOMERULAR FILTRATION RATE > 60.0 (>42); GLUCOSE, FASTING 105 MG/DL (74-106); POTASSIUM SERUM 3.1 MMOL/L (3.5-5.1); SODIUM LEVEL 138 MMOL/L (136-145)
[2022-06-12] MEDS ORDERED: LEVO1TAB40 PO (07:28)
[2022-06-12] MEDS ORDERED: BACI1CAP PO (07:28)
[2022-06-12 07:42] LABS: ATYPICAL LYMPH 2 % (0-5); LYMPHOCYTES 14 % (16-44); MONOCYTES 10 % (0-5); NEUTROPHILS 65 % (28-66); PLATELET ESTIMATE INCREASED (NORMAL)
[2022-06-12 07:44] LABS: ANISOCYTOSIS 1+
[2022-06-12] MEDS ORDERED: POTASSIUM CHLORIDE 10MEQ SR TABLET PO ONE ×2 (07:45→15:00)
[2022-06-12] MEDS ORDERED: MAG SULF 1GM/100ML (MAG RUN) 1 GM in IV 1 EA IV ONE ×2 (08:00→15:00)
[2022-06-12] MEDS: OMEPRAZOLE 20MG CAP PO SCH (08:38)
[2022-06-12] MEDS: FERROUS SULFATE 325MG TAB PO SCH (08:38)
[2022-06-12] MEDS: ATORVASTATIN 20 MG TAB PO SCH (08:38)
[2022-06-12] MEDS: ENOXAPARIN 40MG/0.4ML SYRINGE (J1650 PER 10MG) SC SCH (08:40)
[2022-06-12] MEDS ORDERED: SODIUM CHLORIDE 0.9% INJ 10 ML SYR IV SCH (09:00)
[2022-06-12] MEDS ORDERED: POTA1TAB14 PO (13:06)
[2022-06-12] MEDS ORDERED: MAGN1TAB26 PO (13:06)
[2022-06-12 14:00] VITALS: BP 120/58
[2022-06-12 14:37] LABS: POTASSIUM SERUM 3.6 MMOL/L (3.5-5.1)
[2022-06-12 14:44] LABS: MAGNESIUM LEVEL 1.8 MG/DL (1.8-2.4)
== END 2022-06-12 16:50 | disposition home or self-care (01) | DRG 809 ==
LOC: EDBD 13:05 → M ED 13:05 → M ED INP 17:18 → ENRESERV 06-11 13:01 → M MS5PR 06-11 13:50
PROVIDERS: ADMIT Family Medicine; ATTEND General Practice
PROC: 30233N1 Transfusion of Nonautologous Red Blood Cells into Peripheral Vein, Percutaneous Approach (ICD-10-PCS; principal; 2022-06-11)
DX: D70.1 Agranulocytosis secondary to cancer chemotherapy (principal); E46 Unspecified protein-calorie malnutrition; E87.1 Hypo-osmolality and hyponatremia; T45.1X5A Adverse effect of antineoplastic and immunosuppressive drugs, initial encounter; R53.1 Weakness; E87.6 Hypokalemia; E83.42 Hypomagnesemia; C50.921 Malignant neoplasm of unspecified site of right male breast; M62.50 Muscle wasting and atrophy, not elsewhere classified, unspecified site; I10 Essential (primary) hypertension; D64.81 Anemia due to antineoplastic chemotherapy; E78.5 Hyperlipidemia, unspecified; R25.1 Tremor, unspecified; Z86.73 Personal history of transient ischemic attack (TIA), and cerebral infarction without residual deficits; Z90.49 Acquired absence of other specified parts of digestive tract; Z95.828 Presence of other vascular implants and grafts; Z80.42 Family history of malignant neoplasm of prostate; Z90.13 Acquired absence of bilateral breasts and nipples; Z80.49 Family history of malignant neoplasm of other genital organs; Z79.899 Other long term (current) drug therapy; Z86.16 Personal history of COVID-19

== ENCOUNTER → 2022-06-26 | Outpatient (REF) | payer MEDICARE ==
[~2022-06-26] MED LIST changes: +BACI1CAP PO; +FERR325T19 PO; +LEVO1TAB40 PO; +MAGN1TAB26 PO
[2022-06-26 18:01] LABS: BASO # 0.1 10^3/uL (0.0-0.2); BASO % 0.9 % (0.0-1.0); EOS # 0.4 10^3/uL (0.0-0.5); EOS % 5.4 % (0.0-3.0); HEMOGLOBIN 10.9 g/dl (13.5-17.5); LYMPH # 1.3 10^3/uL (1.5-5.0); LYMPH % 19.7 % (24.0-44.0); MEAN CORPUSCULAR HEMOGLOBIN 30.7 pg (27.0-33.0); MEAN CORPUSCULAR HGB CONC 32.1 g/dl (32.0-36.5); MEAN CORPUSCULAR VOLUME 95.8 fl (80.0-96.0); MONO # 0.8 10^3/uL (0.0-0.8); MONO % 12.1 % (2.0-8.0); NEUTROPHILS # 4.1 10^3/uL (1.5-8.5); NEUTROPHILS % 61.5 % (36.0-66.0); PLATELET COUNT, AUTOMATED 267 10^3/uL (150-450); RED BLOOD COUNT 3.55 10^6/uL (4.30-6.10); WHITE BLOOD COUNT 6.7 10^3/uL (4.0-10.0)
[2022-06-26 18:33] LABS: MAGNESIUM LEVEL 1.6 MG/DL (1.8-2.4)
[2022-06-26 18:35] LABS: ALBUMIN 2.7 G/DL (3.2-5.2); ALKALINE PHOSPHATASE 66 U/L (46-116); ALT/SGPT 30 U/L (7.0-40); AST/SGOT 27 U/L (<34); BILIRUBIN,TOTAL 0.3 MG/DL (0.3-1.2); BLOOD UREA NITROGEN 23 MG/DL (9-23); CALCIUM LEVEL 8.6 MG/DL (8.3-10.6); CARBON DIOXIDE LEVEL 26 MMOL/L (20-31); CHLORIDE LEVEL 102 MMOL/L (98-107); GLOMERULAR FILTRATION RATE > 60.0 (>42); GLUCOSE, FASTING 86 MG/DL (74-106); POTASSIUM SERUM 3.8 MMOL/L (3.5-5.1); SODIUM LEVEL 141 MMOL/L (136-145); TOTAL PROTEIN 5.5 G/DL (5.7-8.2)
[2022-06-26 19:01] LABS: HIV 1&2 SCREEN CENTAUR NEGATIVE (NEGATIVE)
== END ==
LOC: M LAB REF 17:31
PROVIDERS: ATTEND Nurse Practitioner Family
DX: R89.9 Unspecified abnormal finding in specimens from other organs, systems and tissues (principal); Z11.9 Encounter for screening for infectious and parasitic diseases, unspecified

== ENCOUNTER → 2022-06-28 | Outpatient (CLI) | payer MEDICARE ==
[~2022-06-28] MED LIST changes: +ASPI-1 PO; +TAMO20TA8 PO
== END ==
LOC: M ONCR 12:22
PROVIDERS: ATTEND General Practice
DX: C50.421 Malignant neoplasm of upper-outer quadrant of right male breast (principal); I10 Essential (primary) hypertension; Z79.52 Long term (current) use of systemic steroids; Z79.82 Long term (current) use of aspirin; Z79.891 Long term (current) use of opiate analgesic; Z79.899 Other long term (current) drug therapy; Z80.42 Family history of malignant neoplasm of prostate; Z80.49 Family history of malignant neoplasm of other genital organs; Z86.73 Personal history of transient ischemic attack (TIA), and cerebral infarction without residual deficits; Z90.13 Acquired absence of bilateral breasts and nipples; Z92.21 Personal history of antineoplastic chemotherapy

== ENCOUNTER → 2022-07-24 | Outpatient (CLI) | payer MEDICARE | LOC: M RAD 10:51 | PROVIDERS: ATTEND Nurse Practitioner | DX: M79.89 Other specified soft tissue disorders (principal) ==

== ENCOUNTER → 2022-09-21 | Outpatient (RCR) | payer MEDICARE | END | disposition still patient (30) | LOC: M PT 08-28 11:52 | PROVIDERS: ATTEND Specialist | DX: I89.0 Lymphedema, not elsewhere classified (principal) ==

== ENCOUNTER → 2022-09-25 | Outpatient (CLI) | payer MEDICARE ==
[~2022-09-25] MED LIST changes: +LIDO1CRE42 TOP; +POTA-298 PO; -POTA1TAB14 PO
== END ==
LOC: M WHC 10:40
PROVIDERS: ATTEND Pediatrics
DX: M85.851 Other specified disorders of bone density and structure, right thigh (principal); M85.852 Other specified disorders of bone density and structure, left thigh; Z79.810 Long term (current) use of selective estrogen receptor modulators (SERMs)

== ENCOUNTER 2022-10-11 13:08 | Outpatient (RCR) | payer MEDICARE ==
[~2022-10-11 13:08] MED LIST changes: -LIDO1CRE42 TOP
== END 2022-10-21 ==
LOC: M PT 13:08
PROVIDERS: ATTEND Specialist
DX: I89.0 Lymphedema, not elsewhere classified (principal)

== ENCOUNTER → 2022-11-30 | Outpatient (REF) | payer MEDICARE ==
[2022-11-30 19:24] LABS: CHOLESTEROL RISK RATIO 4.98 (<5); HDL CHOLESTEROL 34.9 MG/DL (>40); LDL CHOLESTEROL 118.7 MG/DL (<100); NON-HDL-C 139.1 MG/DL
== END ==
LOC: M LAB REF 17:17
PROVIDERS: ATTEND Pediatrics
DX: E78.5 Hyperlipidemia, unspecified (principal); R97.20 Elevated prostate specific antigen [PSA]
CPT/HCPCS: 80061; G0103

== ENCOUNTER 2023-04-26 12:00 | Day surgery (SDC) | payer MEDICARE ==
[~2023-04-26] VITALS: Ht 175.3 cm; Wt 78.9 kg
[~2023-04-26 12:00] MED LIST changes: +AMLO1TAB24 PO; +LIDO30CR18 TOP; +NS 1,000 ML IV ONE; +propofoL 200 MG/20 ML VIAL As Ordered ONE
[2023-04-26 13:11] VITALS: TEMP 98
[2023-04-26] MEDS ORDERED: LIDOCAINE 2% 100MG/5ML SDV (FOR ANES.) As Ordered ONE (14:01)
[2023-04-26] MEDS ORDERED: GLYCOPYRROLATE INJ 0.2 MG/ML 2 ML VIAL As Ordered ONE (14:18)
[2023-04-26 14:56] VITALS: BP 143/68; O2SAT 100
[2052-03-12] MEDS ORDERED: NS 1,000 ML IV ONE (06:00)
== END 2023-04-26 18:33 | disposition home or self-care (01) ==
LOC: M OPP 12:00
PROVIDERS: ATTEND Surgery
DX: Z12.11 Encounter for screening for malignant neoplasm of colon (principal); Z86.010 Personal history of colon polyps; Z80.0 Family history of malignant neoplasm of digestive organs; D12.0 Benign neoplasm of cecum; K57.30 Diverticulosis of large intestine without perforation or abscess without bleeding; Z79.02 Long term (current) use of antithrombotics/antiplatelets; Z79.82 Long term (current) use of aspirin; Z79.891 Long term (current) use of opiate analgesic; Z79.899 Other long term (current) drug therapy

== ENCOUNTER → 2024-04-20 | Outpatient (REF) | payer MEDICARE ==
[~2024-04-20] MED LIST changes: -NS 1,000 ML IV ONE; -propofoL 200 MG/20 ML VIAL As Ordered ONE
[2024-04-20 14:01] LABS: CREATININE, URINE 143.9 MG/DL
== END ==
LOC: M LAB REF 12:21
PROVIDERS: ATTEND Pediatrics
DX: I10 Essential (primary) hypertension (principal)

== ENCOUNTER → 2024-04-22 | Outpatient (REF) | payer MEDICARE ==
[2024-04-22 18:08] LABS: BLOOD UREA NITROGEN 22 MG/DL (9-23); CALCIUM LEVEL 9.5 MG/DL (8.3-10.6); CARBON DIOXIDE LEVEL 29 MMOL/L (20-31); CHLORIDE LEVEL 107 MMOL/L (98-107); CHOLESTEROL LEVEL 180 MG/DL (<200); CHOLESTEROL RISK RATIO 4.55 (<5); CREATININE FOR GFR 0.99 MG/DL (0.70-1.30); GLOMERULAR FILTRATION RATE > 60.0 (>42); GLUCOSE, FASTING 110 MG/DL (74-106); HDL CHOLESTEROL 39.5 MG/DL (>40); LDL CHOLESTEROL 118.7 MG/DL (<100); NON-HDL-C 140.5 MG/DL; POTASSIUM SERUM 3.4 MMOL/L (3.5-5.1); PROSTATIC SPECIFIC AG MONITOR 8.83 NG/ML (< 4.00); SODIUM LEVEL 139 MMOL/L (136-145); TRIGLYCERIDES LEVEL 109 MG/DL (<150)
[2024-04-22 18:11] LABS: TOTAL 25(OH) VITAMIN D 48.3 NG/ML (20.0-100.0)
== END ==
LOC: M LAB REF 16:50
PROVIDERS: ATTEND Pediatrics
DX: I10 Essential (primary) hypertension (principal); E78.5 Hyperlipidemia, unspecified; Z12.5 Encounter for screening for malignant neoplasm of prostate; M85.80 Other specified disorders of bone density and structure, unspecified site; Z79.899 Other long term (current) drug therapy

== ENCOUNTER → 2024-11-04 | Outpatient (CLI) | payer MEDICARE ==
[~2024-11-04] MED LIST changes: +POTA-151 PO; +POTASSIUM CHLORIDE PO
== END ==
LOC: M PLAIMG 13:42
PROVIDERS: ATTEND Pediatrics
DX: I34.0 Nonrheumatic mitral (valve) insufficiency (principal)

== ENCOUNTER → 2025-02-16 | Outpatient (CLI) | payer MEDICARE | LOC: M ONCM 13:10 | PROVIDERS: ATTEND Dietitian, Registered | DX: C50.911 Malignant neoplasm of unspecified site of right female breast (principal); Z17.0 Estrogen receptor positive status [ER+]; Z17.21 Progesterone receptor positive status; Z17.32 Human epidermal growth factor receptor 2 negative status; Z71.3 Dietary counseling and surveillance; Z68.23 Body mass index [BMI] 23.0-23.9, adult ==

== ENCOUNTER → 2025-05-26 | Outpatient (REF) | payer MEDICARE ==
[2025-05-26 15:39] LABS: CREATININE, URINE 111.0 MG/DL; MALB URINE SIEMENS 163.0 MG/L; MAU/CREAT RATIO 146.8 MCG/MG (0.0-30.0)
[2025-05-26 16:44] LABS: BASO # 0.0 10^3/uL (0.0-0.2); BASO % 0.5 % (0.0-1.0); EOS # 0.1 10^3/uL (0.0-0.5); EOS % 1.0 % (0.0-3.0); LYMPH # 2.0 10^3/uL (1.5-5.0); LYMPH % 25.1 % (24.0-44.0); MONO # 0.8 10^3/uL (0.0-0.8); MONO % 9.5 % (2.0-8.0); NEUTROPHILS # 5.1 10^3/uL (1.5-8.5); NEUTROPHILS % 63.2 % (36.0-66.0); PLATELET COUNT, AUTOMATED 244 10^3/uL (150-450)
[2025-05-26 16:49] LABS: CALCIUM LEVEL 9.0 MG/DL (8.3-10.6); CARBON DIOXIDE LEVEL 27.0 MMOL/L (20-31); CHLORIDE LEVEL 105.0 MMOL/L (98-107); CHOLESTEROL LEVEL 168.0 MG/DL (<200); CHOLESTEROL RISK RATIO 3.9 (<5); CREATININE FOR GFR 1.02 MG/DL (0.70-1.30); GLOMERULAR FILTRATION RATE 74.3 (>35); IRON (FE) 95.0 UG/DL (65-175); LDL CHOLESTEROL 111.6 MG/DL (<100); NON-HDL-C 125.0 MG/DL; PERCENT SATURATION 32.4 % (19.7-50.0); POTASSIUM SERUM 4.0 MMOL/L (3.5-5.1); PSA SCREENING 12.07 NG/ML (< 4.00); SODIUM LEVEL 141.0 MMOL/L (136-145); TRIGLYCERIDES LEVEL 67.0 MG/DL (<150)
== END ==
LOC: M LAB REF 13:44
PROVIDERS: ATTEND Pediatrics
DX: I10 Essential (primary) hypertension (principal); E78.5 Hyperlipidemia, unspecified; D64.9 Anemia, unspecified; Z12.5 Encounter for screening for malignant neoplasm of prostate
CPT/HCPCS: 80048; 80061; 82043; 82728; 83550; 84443; 85025; G0103